=== PATIENT | male | born 1990 | race Caucasian/White ===

== ENCOUNTER 2020-10-18 05:44 | Day surgery (SDC) | payer OTHER ==
[~2020-10-18 05:44] MED LIST: LACTATED RINGERS 1000 ML IV PRN; LIDOCAINE 0.5% INJ-PF (5 MG/ML) 50 ML SDV SUBCUT PRN
[2020-10-18] MEDS ORDERED: EPHEDRINE SULFATE INJ 50 MG/1 ML AMPULE ONE (06:49)
[2020-10-18] MEDS ORDERED: MIDAZOLAM 2 MG/2 ML INJ ONE (06:49)
[2020-10-18] MEDS ORDERED: FENTANYL CITRATE INJ/PF 100 MCG/2 ML AMPUL ONE (06:49)
[2020-10-18] MEDS ORDERED: PROPOFOL INJ 200 MG/20 ML VIAL IV ONE (06:50)
[2020-10-18] MEDS ORDERED: HYDROMORPHONE HCL INJ/PF 2 MG/ML AMPULE ONE (06:50)
[2020-10-18] MEDS ORDERED: SUGAMMADEX SODIUM 200 MG/2 ML SDV IV ONE (06:50)
[2020-10-18] MEDS ORDERED: LIDOCAINE 2% INJ (20 MG/ML) 20 ML MDV ONE (06:52)
[2020-10-18] MEDS ORDERED: METHYLENE BLUE 50 MG/10 ML AMPULE ONE (07:04)
[2020-10-18] MEDS ORDERED: BUPIVACAINE INJ/PF LIPOSOME/PF 266 MG/20 ML SDV ONE (07:04)
[2020-10-18] MEDS ORDERED: CEFAZOLIN 2 GM/D5W RTU 2 GM/50 ML RTUPB IV ONE (07:14)
--- NOTE | 2020-10-18 07:52 | Operative Report ---
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 After appropriate timeout and site verification the procedure commenced. Patient had a fistulous tract opening 2 cm from the anal verge on the right side at the 9 o'clock position. It was infiltrated with methylene blue dye. And the dye was noted to enter the rectal canal approximately 3 to 4 cm proximal intrasphincteric. Then using a probe a rectal probe was placed into the fistulous opening and exited the tract in the rectum. A cut was made over the probe with Bovie cautery to the level of the external sphincter muscle. We then used a red vascular loop and placed it into the tract and tied it also with a to itself on the outside of the rectum. It was fixed 2-0 silk suture to avoid any unraveling. The area was then anesthetized with Exparel. And this completed the procedure. CRISTIANO Kim was present for the entire procedure for help with wound re traction wound closure.
--- NOTE | 2020-10-18 07:55 | Discharge Summary ---
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
[2020-10-18] MEDS ORDERED: HYDROCODONE/ACETAMINOPHEN 10-325 MG TABLET PO PRN (09:19)
[2020-10-18 10:53] VITALS: BP 105/66
[2020-10-18] MEDS ORDERED: KETOROLAC TROMETHAMINE 60 MG/2 ML SDV ONE (11:53)
[2020-10-18] MEDS ORDERED: DEXAMETHASONE SOD PHOSPHATE INJ 4 MG/1 ML VIAL ONE (11:53)
[2020-10-18] MEDS ORDERED: ONDANSETRON HCL INJ/PF 4 MG/2 ML SDV ONE (11:53)
== END 2020-10-18 09:45 | disposition home or self-care (01) ==
LOC: OROUT 05:44
PROVIDERS: ATTEND Surgery
DX: K60.3 Anal fistula (principal); Z20.828 Contact with and (suspected) exposure to other viral communicable diseases; Z87.891 Personal history of nicotine dependence; Z86.19 Personal history of other infectious and parasitic diseases; Z98.890 Other specified postprocedural states
CPT/HCPCS: 87635; 46275; J2250; J3490; J1100; J1885; J3010; J2405; J2704; J0690; C9290; Q9968; C9803; J1170